=== PATIENT | male | born 1950 | race Caucasian/White ===

== ENCOUNTER 2020-08-01 10:36 | Day surgery (SDC) | payer MEDICARE, SELFPAY ==
[2020-06-29 09:16] VITALS: BMI 27.8
[2020-07-27 08:25] VITALS: BMI 28.4
--- NOTE | 2020-07-27 09:20 | RAD_ITS ---
STUDY: X-RAY CHEST REASON FOR EXAM: Male, 69 years old. PRE OP TECHNIQUE: Frontal and lateral views of the chest. COMPARISON: None. FINDINGS: The lungs are clear and expanded. There is no demonstrated pleural abnormality. Normal size heart. Normal mediastinum and dax. Normal visualized pulmonary arteries. Normal visualized aortic arch and descending thoracic aorta. Normal visualized thoracic spine. There is degenerative osteoarthritis of the bilateral shoulders. There is no demonstrated abnormality of the visualized soft tissue structures of the upper abdomen. RAD/Chest PA and Lateral IMPRESSION: Degenerative changes, as described above. No demonstrated acute cardiopulmonary process. Electronically Signed: Divina Starks, at 10:40 EST Tel , Service support ,
[2020-07-27 10:28] LABS: International Normalized Ratio 1.3; Prothrombin Time (Protime)PT. 15.6 SECONDS (11.7-14.9)
[2020-07-27 10:45] LABS: Anion Gap 4 (5-15); BUN 20 mg/dL (7-18); BUN/Creat Ratio 17.1 RATIO (10-20); Calcium,Total 8.9 mg/dL (8.5-10.1); Chloride 102 mmol/L (98-107); Creatinine, Serum 1.17 mg/dL (0.70-1.30); EST Glomerular Filtration Rate 65 mL/min (>60); Est Glom Filt Rate - Afr Amer 79 mL/min (>60); Glucose 144 mg/dL (74-106); Potassium 4.1 mmol/L (3.5-5.1); Sodium Level 138 mmol/L (136-145)
[2020-07-31 11:37] VITALS: BMI 28.4
--- NOTE | 2020-08-01 07:23 | HP_ITS ---
HPI HPI History of Present Illness Details: Mr. Clifford is a very pleasant 69-year-old nondiabetic hypertensive gentleman, lifelong nonsmoker, with a positive family history of coronary disease in his mother in the 1970s, no other first-degree relatives. In 2009 while visiting [place] the patient developed new onset atrial fibrillation. He sought medical attention in the hospital in [place] and underwent a DAYAMI guided DC cardioversion. Since that time he has been placed on Rythmol therapy, which has been subsequently discontinued. In addition he underwent a 2-D echo with Doppler at that time which showed normal LV wall motion, concentric LVH mild AI and mild mitral regurgitation. He states last week while walking he felt something different. He states maybe noting SOB over last week. Pt denies chest, arm, jaw, or neck discomfort. His exercise tolerance is stable. Pt denies symptoms of palpitations, lightheadedness, dizziness, near syncopal or syncopal episodes. Pt denies edema or claudication issues. Pt. denies orthopnea, PND, fever, chills, blood in urine, blood in stool, epistaxis, myalgia, or unexplainable fatigue. 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: No Accompanied by: none Is patient in pain?: No Allergies Penicillins Allergy (Verified 06/29/20 09:14) Rash Medications losartan 100 mg-hydrochlorothiazide 12.5 mg tablet 1 tab PO QDAY 09/22/17 [History Confirmed 06/29/20] timolol 0.5 % eye drops 1 drp OPHTHALMIC BID 09/22/17 [History Confirmed 06/29/20] levothyroxine 137 mcg tablet 137 mcg PO DAILY 11/27/18 [History Confirmed 06/29/20] bimatoprost 0.03 % eye drops 1 drp OPHTHALMIC DAILY 11/29/19 [History Confirmed 06/29/20] aspirin 325 mg tablet 325 mg PO DAILY #90 tab 06/29/20 [Rx Confirmed 06/29/20] metoprolol tartrate 25 mg tablet 25 mg PO BID #60 tab 06/29/20 [Rx Confirmed 06/29/20] [facility] Medical History Hypertension (Chronic) Hyperlipidemia (Chronic) Paroxysmal atrial fibrillation (Chronic) Right bundle branch block (Chronic) Bifascicular block (Chronic) BPH (benign prostatic hyperplasia) (Chronic) Glaucoma (Chronic) History of nephrolithiasis (Chronic) Hypothyroidism (Chronic) Surgical History H/O arthroscopy of right knee (Chronic) History of appendectomy (Chronic) History of cardioversion (Chronic ~12/31/10) Social History (Updated 06/29/20 @ 10:04 by Gilmer Ibarra POCKETED SPRING MACHINE OPERATOR, POCKETED SPRING MACHINE OPERATOR-C) Smoking Status: Never smoker ROS Const Const: Negative for fatigue, weakness, body ache, fever(s) or chills ENT ENT: Negative for dizziness Cardio Chest Pain: No Palpitations: No Edema: None Muscle aches with walking: None Resp Respiratory: Positive for SOB with activity; negative for SOB at rest, SOB orthopnea\SOB lying down or paroxysmal nocturnal dyspnea GI GI: Negative nausea, vomiting blood/hematemesis, bright, red blood in stools or black,tarry stools : Negative for hematuria or frequent nighttime urination/ nocturia Musc Musc: Negative for muscle aches/ myalgia Skin Skin: Negative non-healing lesions or rash Neuro Neuro: Negative for dizziness, lightheadedness, near syncope, syncope, orthostatic symptoms or weakness Endo Endo: Negative for fatigue Allergy Allergy/Immunology: Negative for rash Cardiology Exam Const Appearance: cooperative, healthy appearing, comfortable and no acute distress Nutritional Appearance: well nourished and overweight Orientation: alert, awake and oriented x3 Head Head: normal to inspection Ears: hearing grossly normal bilaterally Nose: external nose normal Face and Sinus: face symmetric Mouth: oral mucosae normal Eyes General: appearance normal, both eyes and all related structures Eyelids: eyelids normal EOM: EOM intact bilaterally Neck Neck: normal visual inspection and no JVD Carotids: normal carotid upstroke Chest Chest inspection: normal inspection of the chest, symmetric chest movement and normal respiratory effort; negative cough Auscultation: Bilateral: Clear to Auscultation Cardio Rate: regular rate Rhythm: irregular rhythm Heart sounds: S1 normal and S2 normal; negative rub, gallop or murmur GI GI: normal to inspection Neuro General: alert, awake, oriented x3 and CN's II-XI intact bilaterally Skin Skin: no rashes or lesions noted Extremities Pulses: Normal: Right Posterior Tibial Pulse, Left Posterior Tibial Pulse, Right Radial Pulse, Left Radial Pulse Lower Extremity Edema: None: Bilateral Psych Psychological: normal affect Assessment & Plan 1. Paroxysmal atrial fibrillation I48.0 Plan His EKG today in office shows atrial fibrillation with underlying right bundle branch block with a QTC of 412 and a QRS of 140. He was asked to change his metoprolol t tartrate to 25 mg p.o. twice daily. It was recommended he begin Eliquis or Xarelto therapy. His [id number] score is 2 (age, hypertension). He is hesitant to begin anticoagulant at this time and wishes to discuss further with his . In the interim, he was asked to begin aspirin 325 mg p.o. daily. If he decides on anticoagulant therapy, he was informed that if he is remaining in atrial fibrillation we can consider cardioversion in the future. He acknowledged understanding. His most recent laboratory testing with primary care physician will be requested for review and ensure electrolyte and thyroid stability. We can consider repeat echocardiogram and stress test based on long- term progress. Patient Instructions Warfarin Eliquis 5mg BID Xarelto 20mg Daily Orders Orders: 12 Lead EKG performed by [facility] Today 2. Essential hypertension I10 Plan He was asked to continue to monitor this. His medications will be adjusted accordingly. 3. Hyperlipidemia, unspecified hyperlipidemia type E78.5 Plan He is currently not on cholesterol-lowering medication. Plan Detail Other Medications New: aspirin 325 mg PO DAILY 90 tabs 3RF Changed: From: metoprolol tartrate 25 mg PO DAILY 30 tabs 0RF To: metoprolol tartrate 25 mg PO BID 60 tabs 0RF Additional Comments Thank you for allowing us to participate in the patients plan of care, if you have any questions please do not hesitate to call. This note was generated using a voice recognition system and there may be incorrect words, spelling or punctuation that were not noted when reviewing the office note prior to saving. Follow Up PCP Labs 6 Months (POCKETED SPRING MACHINE OPERATOR/PA) Coding Level of Care Code Off vis,est,level 4 Diagnoses Paroxysmal atrial fibrillation I48.0 Essential hypertension I10 ??Hypertension type: essential hypertension Hyperlipidemia, unspecified hyperlipidemia type E78.5 ??Hyperlipidemia type: unspecified Coding Level of Care Code Off vis,est,level 4 Diagnoses Paroxysmal atrial fibrillation I48.0 Essential hypertension I10 ??Hypertension type: essential hypertension Hyperlipidemia, unspecified hyperlipidemia type E78.5 ??Hyperlipidemia type: unspecified Supplemental Info Supplemental Information Echocardiogram 06/04/2016: Interpretation summary The estimate ejection fraction is 65%. Stage I diastolic dysfunction. Unable to estimate RV systolic pressure/pulmonary artery pressure due to technically difficult study. Trivial aortic valve insufficiency. There is no comparison study available. Stress echocardiogram from 06/07/2016: Interpretation summary The estimate ejection fraction is 65%. Normal adequate treadmill echocardiogram. Negative for ischemia by ECG and echo criteria. No anginal symptoms noted. Rare PVC noted. Hypertension blood pressure response to exercise. Average exercise capacity for age. Test terminated due to dyspnea. Final LVEF=75%. Diagnostics Electrocardiogram 06/29/20 I have examined the patient the following changes are noted: The patient elected to proceed with anticoagulant therapy and status post appropriate amount of time on anticoagulant therapy to proceed with an attempt at regaining sinus rhythm with a synchronized biphasic DC cardioversion. The procedure and risks were discussed with the patient. He was agreeable to this approach. The surgeon/proceduralist and patient have discussed in detail the risk of exposure to and/or potential harm posed by the COVID-19 virus with having a surgery/procedure at this time versus the risk of delaying the surgery/procedure. It is not possible to know either the risk of delaying the surgery or procedure or chance of getting an infection with perfect accuracy, but a joint decision was made between the patient and the surgeon/proceduralist to proceed at this time with the scheduled surgery/procedure as indicated on the consent form.
--- NOTE | 2020-08-01 15:29 | CARDIOVERS_ITS ---
Cardioversion Cardioversion: Date: 08-01-2020 Procedure: Synchronized Biphasic DC Cardioversion Indications: Atrial fibrillation Consent: Per the Patient Anesthesia: per Dr. Palumbo of pulmonology and critical care medicine with propofol 40 mg IV push total Procedure: Synchronized Biphasic DC Cardioversion: 200 J x 1: Result: Sinus rhythm; PACs Complications: no apparent complications This note was generated with [employer] Glass[employer] software. It may contain incorrect words, spelling, and punctuation that were not noted in checking the note before signing.
--- NOTE | 2020-08-01 15:52 | PRO.PCM_ITS ---
Problem List (1) Bifascicular block Status: Chronic Comment: LAFB and RBBB (2) Hyperlipidemia Status: Chronic Qualifiers: (3) Hypertension Status: Chronic Qualifiers: (4) Paroxysmal atrial fibrillation Status: Chronic (5) Right bundle branch block Status: Chronic Procedure Report Date of Procedure: 08/01/20 - Conscious sedation CONSCIOUS SEDATION REPORT BRIEF HISTORY OF PRESENT ILLNESS: The patient is a 69-year-old male who presented to [facility] for an elective outpatient cardioversion due to underlying atrial fibrillation. The patient reports no PO intake since midnight. The patient does not have a history of obstructive sleep apnea, but does report snoring. The patient reports no history of smoking and COPD. The patient denies any recent constitutional symptoms such as fevers, chills, nausea or vomiting. The patient denies previous anesthetic complications. Patient did take his Eliquis on the day of testing. Patient's last known ejection fraction was 65%. PHYSICAL EXAMINATION: VITAL SIGNS: Reviewed and were acceptable. GENERAL: The patient is a male, in no apparent distress, speaking in full sentences. HEENT: Normocephalic, atraumatic. Mucous membranes are moist and pink. Good mouth opening noted. Trachea is midline. Good neck mobility. MP III CHEST: S1, S2 irregularly irregular. No murmurs, rubs or gallops were noted. LUNGS: Clear to auscultation bilaterally without appreciable wheezes, rales or rhonchi. ABDOMEN: Soft, nontender, nondistended. Positive bowel sounds. EXTREMITIES: There is no clubbing, cyanosis or edema. ASA Class: II DESCRIPTION OF PROCEDURE: After confirmation of informed consent, the patient's anesthesia plan was reviewed in detail. Propofol was chosen. Risks and benefits were reviewed and the patient agreed to proceed. At 12:17 PM, the patient was given 40 mg of propofol. The patient achieved an appropriate level of sedation and received 1 attempt synchronized cardioversion, at [address] Gasca at the bedside. This was successful in achieving normal sinus rhythm. The patient was monitored until 12:30 PM, at which time the patient reached their baseline mental status and function. The patient tolerated the procedure well. COMPLICATIONS: None ESTIMATED BLOOD LOSS: None RECOMMENDATIONS: Okay to recover in usual fashion. 9xxxx: Other Procedure See Report - 06301 -13 minutes conscious sedation
== END 2020-08-01 13:50 | disposition home or self-care (01) ==
LOC: CLSP 10:38
PROVIDERS: Nurse Practitioner Family; PCP Nurse Practitioner Family; Referring Provider Internal Medicine Cardiovascular Disease; Visit Provider Internal Medicine Cardiovascular Disease
DX: I48.0 Paroxysmal atrial fibrillation (principal); I10 Essential (primary) hypertension; E78.5 Hyperlipidemia, unspecified; I45.2 Bifascicular block; N40.0 Benign prostatic hyperplasia without lower urinary tract symptoms; E03.9 Hypothyroidism, unspecified; Z79.01 Long term (current) use of anticoagulants; Z79.899 Other long term (current) drug therapy; Z79.82 Long term (current) use of aspirin; Z82.49 Family history of ischemic heart disease and other diseases of the circulatory system
CPT/HCPCS: 36415; 71046; 80048; 85610; 92960; 93005; J7040

== ENCOUNTER → 2022-10-22 | Outpatient (CLI) | payer MEDICARE, SELFPAY ==
[2022-10-22 15:40] LABS: Absolute Lymphocyte Count 1.28 X10^3/uL (0.83-4.51); Absolute Neutrophil Count 4.2 X10^3/uL (2.0-7.7); Basophil# 0.05 X10^3/uL; Basophil% 0.7 % (0-1); Eosinophil# 0.26 X10^3/uL; Eosinophils% 3.7 % (0-5); Hematocrit 46.5 % (40-54); Hemoglobin 15.3 g/dL (13.0-16.5); Lymphocyte # 1.28 X10^3/ul (0.83-4.51); Lymphocyte % 18.1 % (19-41); Mean Corp Hgb Conc 32.9 g/dL (32-36); Mean Corpuscular Hgb 30.8 pg (27.0-32.0); Mean Corpuscular Volume 93.8 fL (80-94); Mean Platelet Vol. 10.5 fl (6.2-12.0); Monocyte# 1.23 X10^3/uL; Monocyte% 17.3 % (0-10); NRBC Flagged by Analyzer 0 % (0-5); Neutrophil # 4.24 X10^3/uL (2.7-7.7); Neutrophil % 59.8 % (47-70); Platelet Count 239 K/mm3 (150-450); RBC Distribution Width CV 13.5 % (11.6-14.6); RBC Distribution Width SD 47.1 fl (35.1-43.9); Red Blood Count 4.96 M/mm3 (4.6-6.2); White Blood Count 7.1 K/mm3 (4.4-11.0)
[2022-10-22 17:00] LABS: ALB/GLOB Ratio 1.2 RATIO (0.9-2.4); AST(SGOT) 27 U/L (15-37); Alanine Aminotransfer ALT/SGPT 25 U/L (16-61); Albumin, Serum 3.8 g/dL (3.2-5.0); Alkaline Phosphatase 68 U/L (45-117); Anion Gap 7 (5-15); BUN 20 mg/dL (7-18); BUN/Creat Ratio 16.9 RATIO (10-20); Calcium,Total 9.1 mg/dL (8.5-10.1); Chloride 101 mmol/L (98-107); Creatinine, Serum 1.18 mg/dL (0.70-1.30); EST Glomerular Filtration Rate 64 mL/min (>60); Est Glom Filt Rate - Afr Amer 78 mL/min (>60); Globulin 3.1 g/dL (2.2-4.2); Glucose 153 mg/dL (74-106); Potassium 4.1 mmol/L (3.5-5.1); Protein, Total 6.9 g/dL (6.4-8.2); Sodium Level 137 mmol/L (136-145)
== END | disposition home or self-care (01) ==
LOC: MFPLAB 12:02
PROVIDERS: PCP Family Medicine; Referring Provider Family Medicine; Visit Provider Family Medicine
DX: Z01.812 Encounter for preprocedural laboratory examination (principal)
CPT/HCPCS: 36415; 80053; 85025

== ENCOUNTER 2022-11-08 05:52 | Day surgery (SDC) | payer MEDICARE, SELFPAY ==
[2022-11-08] VITALS (7 sets, daily range): BP systolic 112–150; BP diastolic 77–95; PULSE 50–78; RESP 14–18; TEMP 36–37.2; O2SAT 95–100; BMI 26.4
--- NOTE | 2022-11-08 | BON_PTH ---
PATIENT: SYLWIA CARLSON LOC[place] [facility] [place] U#:[id number] AGE/SX: 72/M ROOM: RE11/08/[address]: Dr. Charlie Tang DPM : 1950 BED: DIS: 11/08/2022 SPEC #: [id number] RECD: 11/08/22 09:30 STATUS: KYLEE RADHA #: [id number] SHABNAM: 11/08/22 00:[address]: Charlie Tang DEPT: SURGICAL PATHOLOGY RECD BY: Gonsalo Williamson ENTERED: 11/08/22 09:52 SP TYPE: Bone OTHR DR: MD Jensen Stark, MARINE UNDERWRITER-C Tissues: Bone of foot, NOS Procedures: Decalcification bone/plaque Surgery Specimen Level III HEADER OPERATION: Foot osteotomy of fifth metatarsal head PRE-OP DIAGNOSIS: Tailor bunion, abducto varus fifth metatarsal TISSUE SUBMITTED: Fifth metatarsal head MICROSCOPIC DIAGNOSIS Fifth metatarsal head, excision: A piece of bone with reactive changes and chronic inflammation, clinically tailor shayla. KIMBERLY:gary 11/15/2022 COMMENT Case has been reviewed in consultation with Dr. Issa who concurs with the above diagnosis. IDC:AM MICROSCOPIC DESCRIPTION Slides are reviewed. GROSS DESCRIPTION Received in fixative is one container labeled with the patient's name and designated fifth metatarsal head. The specimen consists of a piece of bone measuring 1.5 x 1.0 x 1.0 cm. The entire specimen is submitted in two cassettes after decalcification. / KIMBERLY:gary 11/08/2022 TC:5 CPT: 62871, 35787
[2022-11-08] MEDS: Lactated Ringers 1,000 ML 15 ML IV ×2 (07:08→08:30)
--- NOTE | 2022-11-08 07:27 | RAD_ITS ---
EXAM: XR Foot 2 Views HISTORY: OSTEOTOMY LT 5TH METATARSAL HEAD COMPARISON: None TECHNIQUE: 7 seconds of fluoroscopy, radiation dose of 0.422mGym 2 C-arm images obtained FINDINGS: No intraoperative complications noted during osteotomy of the distal aspect of the fifth metatarsal. RAD/Foot 2 Views IMPRESSION: No intraoperative convocations noted during osteotomy of the distal aspect of the fifth metatarsal. Electronically Signed: Ayush Wallace MD at 8:47 EDT ,
[2022-11-08 07:31] LABS: Bedside Glucose 180 mg/dL (74-106)
[2022-11-08] MEDS: Clindamycin 900 MG/50 ML BAG 75 MG IV (07:40)
[2022-11-08 07:44] LABS: Thyroid Stim Hormone (TSH) 3.27 uIU/mL (0.358-3.74)
[2022-11-08] MEDS: Bupivacaine Mpf 0.5% 30 ML VIAL (08:25)
--- NOTE | 2022-11-08 08:48 | PCM.OPRPT ---
Problems Associated Problem List Diagnoses (1) Other hammer toe(s) (acquired), left foot: (2) Tailor's bunion of left foot: Report of Operation Date of Procedure: 11/08/22 Pre-Operative Diagnosis: 1. Left foot tailor's bunion 2. 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 Due to severity of the I am 4 5 angle discussed patient that we could perform a conventional osteotomy with correction of this angular deformity. But this would likely require a longer recovery period. Patient wished to remove the bump and wish to opt for fifth metatarsal head resection instead. Z-plasty and extensor tenotomy performed to help reduce the adductovarus deformity which were overlapping the fourth digit. Upon performance of both these procedures there is noted to be significant improvement in his angular deformity which no longer overlap the fourth digit and set plantigrade with the adjacent toes. Surgeon: Charlie Tang microbiology lab manager: None (Fidel Isabel) Type of Anesthesia: MAC Special Medications: 30cc 0.5% marcaine plain Specimen's removed: Left 5th metatarsal head Drains: None Estimated Blood Loss (mL): minimal Fluids Replaced: none Description of Procedure: Patient brought back to the operating placed comfortably in supine position on the operating room table. Patient induced under MAC anesthesia. Well-padded left ankle tourniquet applied. Preoperative block using standard reverse Yun block technique performed with 0.25% Marcaine plain 10 cc. Left lower extremity hip bump placed. Left lower extremity scrubbed prepped draped using typical aseptic fashion. Left lower extremity elevated exsanguinated tourniquet inflated 250 mmHg. Total tourniquet time was noted be 36 minutes. Once cleared by anesthesia a Z-plasty was drawn along the deformity correction with a 2 cm main access line along the course of the Lydick contracture running from proximal medial to distal lateral across the dorsal foot traversing the fifth metatarsal phalangeal joint. To 60 degree angled arms were then applied to complete the Z-plasty both incisional arms 2 cm in length. This incision was made using a #15 blade through epidermis dermis into subcutaneous tissue the Z-plasty triangles were then dissected atraumatically there is noted to be an underlying superficial lateral to dorsal cutaneous nerve. This was gently and atraumatically dissected out without disruption of the nerve and underlying neurovascular bundle and retracted gently out of the incisional site to allow for adequate exposure of the fifth metatarsal phalangeal joint. Once there is adequate exposure fifth metatarsal phalangeal joint both extensor tendons were tenotomized using tenotomy scissors. A transverse capsulotomy was performed over the dorsal fifth metatarsal phalangeal joint to expose the fifth metatarsal head. This fifth metatarsal head was then removed using a sagittal saw and confirmed clinically it did note reduction of the lateral bump associated with the tailor's bunion as well as fluoroscopically. Once this was performed there is no to be adequate reduction of the digital deformity with no longer rotated with regards to the frontal plane no longer sagittally and transversely contracted over the fourth digit and sat plantigrade with the adjacent toes. Incisional site was flushed with copious amounts of normal sterile saline. An incision was closed to skin using 4-0 Monocryl simple interrupted technique after the Z-plasty wedges were flipped to allow for adequate lengthening of the skin to maintain reduction of the deformity. Once this was performed the incisional site was then dressed with Betadine Adaptic 4 x 4's Kerlix and Christian tourniquet was let down after incisional closure to prevent any concern for hematoma. Prior to application of the dressing additional local anesthesia was performed using reverse Yun block technique with 20 cc 0.25% Marcaine plain. Patient was then transferred to PACU with vital signs stable vascular status intact all digits for further monitoring prior to discharge. Patient tolerated procedure and anesthesia well apparent satisfactory condition. Patient will keep dressing intact ambulate to heel in cam boot and follow-up in 1 week. Patient takes Eliquis for A-fib and will continue this for DVT prophylaxis as well Complications None Admit VTE Documentation VTE Present on Admission: Yes VTE Pharm Prophylaxis ordered?: Yes
[2022-11-08 09:10] LABS: Bedside Glucose 173 mg/dL (74-106)
== END 2022-11-08 11:34 | disposition home or self-care (01) ==
LOC: SDC 05:53 → AC 05:54
PROVIDERS: Anesthesiology; PCP Nurse Practitioner Family; Referring Provider Podiatrist; Visit Provider Podiatrist
PROC: (CPT 28308; principal; 2022-11-08 07:15)
DX: M20.42 Other hammer toe(s) (acquired), left foot (principal); I48.11 Longstanding persistent atrial fibrillation; E11.9 Type 2 diabetes mellitus without complications; M21.622 Bunionette of left foot; I10 Essential (primary) hypertension; E03.9 Hypothyroidism, unspecified; E07.9 Disorder of thyroid, unspecified; Z79.01 Long term (current) use of anticoagulants; Z79.899 Other long term (current) drug therapy
CPT/HCPCS: 28308; 28234; 01480; 73620; 76000; 82962; 84443; 88304; 88305; 88311; J7120; J2405

== ENCOUNTER → 2024-01-16 | Outpatient (CLI) | payer MEDICARE, SELFPAY ==
--- NOTE | 2024-01-16 09:55 | ECHOD_ITS ---
Reason For Study: ARRYTHMIA Procedure This was a 2D Doppler, Color Flow transthoracic echocardiogram. Exam performed in department. Left Ventricle Normal LV size. Left ventricular systolic function is normal. The left ventricular ejection fraction is 65 %. No regional wall motion abnormalities noted. Right Ventricle Normal RV size. Normal systolic function. Atria Normal left atrium. The right atrium is moderately enlarged. Mitral Valve Normal mitral valve. Tricuspid Valve Normal tricuspid valve. Mild tricuspid valve insufficiency. Pulmonary artery systolic pressure is 30 mmHg. Aortic Valve Trisinus/trileaflet aortic valve. Mild focal aortic valve calcification. Mild (1+) aortic valve insufficiency. Pulmonic Valve Normal pulmonic valve. Great Vessels Normal aortic root. The pulmonary artery is normal size. Inferior vena cava collapse with sniff. Pericardium/Pleural No pericardial effusion. MMode/2D Measurements & Calculations LVIDd: 3.9 cm IVSd: 1.2 cm Ao root diam: 3.3 cm LVIDs: 2.5 cm LVPWd: 1.4 cm RVDd: 4.1 cm FS: 36.5 % LAV(MOD-bp): 45.6 ml LVAd ap4: 28.8 cm2 SV(MOD-sp4): 55.4 ml LAV(MOD-bp) Indexed: 24.2 ml/m2 LVLd ap4: 7.9 cm LAV(MOD-sp2): 49.6 ml EDV(MOD-sp4): 85.8 ml LAV(MOD-sp4): 43.0 ml EDV(sp4-el): 88.6 ml LVAs ap4: 15.7 cm2 LVLs ap4: 6.9 cm ESV(MOD-sp4): 30.4 ml ESV(sp4-el): 30.4 ml EF(MOD-sp4): 64.6 % EF(sp4-el): 65.7 % SV(sp4-el): 58.2 ml LA A4 area: 17.4 cm2 LA dimension(2D): 4.0 cm RA A4 area: 28.4 cm2 Doppler Measurements & Calculations MV E max dorene: 94.6 cm/sec Ao V2 max: 144.4 cm/sec LV V1 max: 120.4 cm/sec Ao max P.4 mmHg LV V1 max P.8 mmHg Ao V2 mean: 93.3 cm/sec LV V1 mean P.2 mmHg Ao mean P.1 mmHg LV V1 mean: 82.4 cm/sec Ao V2 VTI: 29.9 cm LV V1 VTI: 31.0 cm AV (velocity ratio): 1.0 PA V2 max: 56.0 cm/sec TR max dorene: 252.2 cm/sec PA V2 mean: 34.2 cm/sec TR max P.4 mmHg ECHO/Echo Complete Interpretation Summary Normal LV size. Left ventricular systolic function is normal. The left ventricular ejection fraction is 65 %. Mild tricuspid valve insufficiency. Mild (1+) aortic valve insufficiency. Ordering Physician: Guerline Steinberg Referring Physician: Guerline Steinberg Performed By: Edna Anand and Student
== END | disposition home or self-care (01) ==
LOC: CVS 09:49
PROVIDERS: PCP Nurse Practitioner Family; Referring Provider Physician Assistant Medical; Visit Provider Physician Assistant Medical
DX: I48.11 Longstanding persistent atrial fibrillation (principal); R53.83 Other fatigue
CPT/HCPCS: 93306

== ENCOUNTER → 2024-02-18 | Outpatient (CLI) | payer MEDICARE, SELFPAY ==
--- NOTE | 2024-02-18 16:14 | STRESSREP ---
Stress Test Report Exercise myocardial perfusion stress test. 73-year-old man with a history of bifascicular block dyspnea on exertion Stress protocol: Resting EKG demonstrates atrial fibrillation with a rate of 46 bpm resting blood pressure is 142/98 mmHg. right bundle branch block is present the patient exercised according to the regular Neil protocol for a total duration of 8 minutes and 20 seconds attaining a maximum heart rate of 101 bpm which was 69% of maximum predicted heart rate; the maximum workload was 10.1 metabolic equivalents. At rest there were no ST or T wave changes noted to suggest ischemia and at peak exercise upsloping ST changes only were noted which did not meet the criteria for ischemia. No clinical angina was noted the test was terminated due to the target heart rate being achieved/fatigue. The peak blood pressure was 148/82 mmHg. Rate-pressure product was 13,400. Myocardial perfusion protocol. 11.2 mCi of technetium 99m sestamibi was injected at rest. The patient exercised according to regular Neil protocol for total duration of 8 minutes and 26 and at peak exercise 33 point mCi of technetium 99m sestamibi was injected stress images were obtained stress and rest images were reconstructed in comparing the short axis vertical long and horizontal long axis. Gated images were also obtained. Perfusion SPECT analysis: Review of the stress images demonstrate normal uptake of tracer noted in all areas of the myocardium. The resting images similarly demonstrate normal uptake of tracer noted in all areas of the myocardium. No areas of reversibility are noted to suggest ischemia no previous infarct was noted. Gated SPECT analysis: The gated ejection fraction is 74%. Conclusion: Normal exercise myocardial perfusion stress test at a moderate workload Preserved ejection fraction.
== END | disposition home or self-care (01) ==
LOC: CVS 07:06
PROVIDERS: PCP Nurse Practitioner Family; Referring Provider Physician Assistant Medical; Visit Provider Physician Assistant Medical
DX: R06.02 Shortness of breath (principal)
CPT/HCPCS: 78452; 93017; A9500